=== PATIENT | female | born 1960 | race Caucasian/White ===

== ENCOUNTER 2016-10-15 14:44 | Emergency (ER) | payer BC ==
[~2016-10-15] VITALS: Ht 160 cm; Wt 84.1 kg
[~2016-10-15 14:44] MED LIST: LORA10TA51 PO; PSEU120T21; WARF10TA4 PO
[2016-10-15 14:48] VITALS: TEMP 36.5; Ht 160 cm; Wt 84.1 kg
[2016-10-15] MEDS ORDERED: MONT1TAB3 PO (16:22)
[2016-10-15] MEDS ORDERED: ADVIN10/60 INH (16:22)
[2016-10-15] MEDS ORDERED: ONDANSETRON INJ 2 MG/ML 2 ML VIAL IV STA (16:34)
[2016-10-15] MEDS ORDERED: SODIUM CHLORIDE 0.9% 1000ML 1,000 ML IV STA ×2 (16:34)
[2016-10-15] MEDS ORDERED: ACET-1256 PO (16:35)
[2016-10-15] MEDS ORDERED: MoRPHine SULFATE 10 MG/ML CARP/VIAL IV PRN (16:45)
[2016-10-15 17:03] LABS: BASO % 0.2 %; BASO ABS # 0.02 K/uL (0-0.2); COMPLETE YES; EOS % 0.4 %; HEMATOCRIT 44.2 % (37-47); IG% 0.2 %; LYMPH % 9.4 %; MEAN CELL VOLUME 83.6 fL (80-100); MEAN CORPUSCULAR HEMOGLOBIN 29.3 pg (25-34); MEAN CORPUSCULAR HGB CONC 35.1 g/dl (32-36); MEAN PLATELET VOLUME 10.2 fL (7.4-10.4); MONO % 3.4 %; NEUT % 86.4 %; PLATELET COUNT 277 K/uL (130-400); RED BLOOD COUNT 5.29 M/uL (4.2-5.4); WHITE BLOOD COUNT 10.62 K/uL (4.8-10.8)
--- NOTE | 2016-10-15 17:04 | EMERGENCY ROOM VISIT NOTE ---
History Report prepared by Jerilyn: Low Burk Under the Supervision of: Dr. Enmanuel Renteria M.D. First contact with patient: 16:32 Chief Complaint: ABDOMINAL PAIN Stated Complaint: ABDOMINAL BACK PAIN Nursing Triage Summary: pt reports RLQ pain that radiates into low back since noon denies urinary sx, +NV History of Present Illness The patient is a 56 year old female who presents to the Emergency Room with complaints of constant right lower back pain beginning four and a half hours prior to arrival. She currently rates her discomfort as a 10/10 in severity. The patient associates right lower back pain that radiates into her right lower abdomen, nausea, vomiting, and decreased urination with today's symptoms. She notes she will feel like she has to urinate, but not much urine will be voided. The patient notes she still has her gallbladder and appendix. She states she has never had a kidney stone, but they run in her family. The patient denies a fever and cough. She notes a history of a tubal ligation and a hysterectomy. 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 A total of 10 systems reviewed and were otherwise negative. Past Medical & Surgical Medical Problems: (1) Asthma (2) Endometriosis Surgical Problems: (1) S/P hysterectomy (2) S/P tubal ligation Family History Cancer FH: heart disease Social History Smoking Status: Never Smoker Marital Status: Housing Status: lives with significant other Occupation Status: employed Current/Historical Medications Scheduled Montelukast Sodium (Singulair), 10 MG PO HS Ondasetron Odt (Zofran Odt), 4 MG SL Q6H Sertraline (Zoloft), 100 MG PO DAILY Scheduled PRN Acetaminophen (Tylenol), 1,000 MG PO UD PRN for Pain or Fever Albuterol (Proair Hfa), 2 PUFFS INH QID PRN for SOB/Wheezing Fluticasone Prop/Salmeterol (Advair Diskus 100/50 60 Dose), 1 PUFF INH BID PRN for Wheezing Loratadine (Claritin), 10 MG PO DAILY PRN for Allergy Symptoms Oxycodone Ir (Roxicodone Ir), 1-2 TAB PO Q4H PRN for Pain Allergies Coded Allergies: Naproxen (Verified Adverse Reaction, Unknown, INTERNAL BLEEDING, 03/22/16) Physical Exam Vital Signs Date Time Temp Pulse Resp B/P Pulse Ox O2 Delivery O2 Flow Rate FiO2 10/15/16 18:54 59 18 162/94 91 10/15/16 17:35 50 18 162/76 93 Room Air 10/15/16 14:48 36.5 51 18 171/116 100 Room Air Physical Exam GENERAL: Patient is in mild distress secondary to pain. HEENT: No acute trauma, normocephalic atraumatic, mucous membranes moist, no nasal congestion, no scleral icterus. NECK: No stridor, no adenopathy, no meningismus, trachea is midline. LUNGS: Clear to auscultation bilaterally, no wheeze, no rhonchi, breath sounds equal. HEART: Without murmurs gallops or rubs, regular rate and rhythm. ABDOMEN: Tender mostly in the right lower quadrant. Soft, bowel sounds positive , no hernias, no peritonitis. BACK: Right flank discomfort with percussion. EXTREMITIES: No cyanosis or edema, full range of motion of all the joints without pain or difficulty, no signs for acute trauma. NEUROLOGIC: Oriented x 3, no acute motor or sensory deficits, no focal weakness. SKIN: No rash, no jaundice, no diaphoresis. Medical Decision & Procedures ER Provider Diagnostic Interpretation: CT results as stated below per my review and radiologist interpretation: ABDOMEN AND PELVIS CT WITHOUT CONTRAST CT DOSE: 1459.56 mGy.cm HISTORY: EVALUATE FLANK PAIN/HEMATURIA TECHNIQUE: Multiaxial CT images of the abdomen and pelvis were performed without the use of intravenous and oral contrast according to the standard department stone protocol. COMPARISON STUDY: None. FINDINGS: There is a 4 mm stone within the right ureterovesical junction best seen on image 165. This results in mild to moderate right hydroureteronephrosis. There is associated right perinephric fat stranding/fluid. No additional renal calculi. No left-sided hydronephrosis. The lung bases are essentially clear. Therefore scattered hypodense lesions seen within the liver. These are incompletely characterized on this noncontrast study but favor cysts. The largest in the left hepatic lobe measures 1.9 cm. The unenhanced spleen, adrenal glands, pancreas, and gallbladder are unremarkable. The bladder is unremarkable. The uterus is surgically absent. Suboptimal evaluation for bowel pathology due to the lack of intravenous and oral contrast. However, there is no definite bowel wall thickening or obstruction. A few sigmoid diverticula. Normal appendix. IMPRESSION: A 4 mm obstructing stone at the right ureterovesical junction resulting in mild to moderate right-sided hydroureteronephrosis. Electronically signed by: Ariel Walters M.D. 10/15/2016 5:32 PM Dictated Date/Time: 10/15/2016 5:26 PM Laboratory Results 10/15/16 16:35 Red Blood Count 5.29, Mean Corpuscular Volume 83.6, Mean Corpuscular Hemoglobin 29.3, Mean Corpuscular Hemoglobin Concent 35.1, Mean Platelet Volume 10.2, Neutrophils (%) (Auto) 86.4, Lymphocytes (%) (Auto) 9.4, Monocytes (%) (Auto) 3.4, Eosinophils (%) (Auto) 0.4, Basophils (%) (Auto) 0.2, Neutrophils # (Auto) 9.18, Lymphocytes # (Auto) 1.00, Monocytes # (Auto) 0.36, Eosinophils # (Auto) 0.04, Basophils # (Auto) 0.02 10/15/16 16:35 Test 10/15/16 16:35 10/15/16 16:50 White Blood Count 10.62 K/uL (4.8-10.8) Red Blood Count 5.29 M/uL (4.2-5.4) Hemoglobin 15.5 g/dL (12.0-16.0) Hematocrit 44.2 % (37-47) Mean Corpuscular Volume 83.6 fL (80-100) Mean Corpuscular Hemoglobin 29.3 pg (25-34) Mean Corpuscular Hemoglobin Concent 35.1 g/dl (32-36) Platelet Count 277 K/uL (130-400) Mean Platelet Volume 10.2 fL (7.4-10.4) Neutrophils (%) (Auto) 86.4 % Lymphocytes (%) (Auto) 9.4 % Monocytes (%) (Auto) 3.4 % Eosinophils (%) (Auto) 0.4 % Basophils (%) (Auto) 0.2 % Neutrophils # (Auto) 9.18 K/uL (1.4-6.5) Lymphocytes # (Auto) 1.00 K/uL (1.2-3.4) Monocytes # (Auto) 0.36 K/uL (0.11-0.59) Eosinophils # (Auto) 0.04 K/uL (0-0.5) Basophils # (Auto) 0.02 K/uL (0-0.2) RDW Standard Deviation 43.1 fL (36.4-46.3) RDW Coefficient of Variation 14.0 % (11.5-14.5) Immature Granulocyte % (Auto) 0.2 % Immature Granulocyte # (Auto) 0.02 K/uL (0.00-0.02) Anion Gap 14.0 mmol/L (3-11) Est Creatinine Clear Calc Drug Dose 75.9 ml/min Estimated GFR () 88.1 Estimated GFR (Non- 76.1 BUN/Creatinine Ratio 13.5 (10-20) Calcium Level 10.0 mg/dl (8.5-10.1) Total Bilirubin 0.6 mg/dl (0.2-1) Aspartate Amino Transf (AST/SGOT) 15 U/L (15-37) Alanine Aminotransferase (ALT/SGPT) 26 U/L (12-78) Alkaline Phosphatase 81 U/L (45-117) Total Protein 7.6 gm/dl (6.4-8.2) Albumin 4.3 gm/dl (3.4-5.0) Globulin 3.3 gm/dl (2.5-4.0) Albumin/Globulin Ratio 1.3 (0.9-2) Lipase 179 U/L (73-393) Urine Color DK YELLOW Urine Appearance CLEAR (CLEAR) Urine pH 7.5 (4.5-7.5) Urine Specific [place] 1.028 (1.000-1.030) Urine Protein NEG (NEG) Urine Glucose (UA) NEG (NEG) Urine Ketones 4+ (NEG) Urine Occult Blood 3+ (NEG) Urine Nitrite NEG (NEG) Urine Bilirubin NEG (NEG) Urine Urobilinogen NEG (NEG) Urine Leukocyte Esterase TRACE (NEG) Urine WBC (Auto) 1-5 /hpf (0-5) Urine RBC (Auto) >30 /hpf (0-4) Urine Hyaline Casts (Auto) 1-5 /lpf (0-5) Urine Epithelial Cells (Auto) >30 /lpf (0-5) Urine Bacteria (Auto) NEG (NEG) Laboratory results reviewed by me. Medications Administered Medications (Trade) Dose Ordered Sig/Sin Route Start Time Stop Time Status Last Admin Dose Admin Ondansetron HCl 4 mg 4 mg NOW STAT IV 10/15/16 16:34 10/15/16 16:37 DC 10/15/16 16:49 4 MG Sodium Chloride (Nss 1000ml) 1,000 ml @ 999 mls/hr Q1H1M STAT IV 10/15/16 16:34 10/15/16 17:34 DC 10/15/16 16:49 999 MLS/HR Morphine Sulfate (MoRPHine SULFATE INJ) 6 mg Q15M PRN IV 10/15/16 16:45 10/15/16 19:29 DC 10/15/16 16:49 6 MG Morphine Sulfate (MoRPHine SULFATE INJ) 2 mg STK-MED ONCE .ROUTE 10/15/16 18:25 10/15/16 18:27 DC 10/15/16 18:29 2 MG Morphine Sulfate (MoRPHine SULFATE INJ) 4 mg STK-MED ONCE .ROUTE 10/15/16 18:25 10/15/16 18:27 DC 10/15/16 18:28 4 MG ED Course 1632: The patient was evaluated in room A3. A complete history and physical exam was performed. 1634: Ordered Sodium Chloride 1,000 ml @ 200 mls/hr IV, Sodium Chloride 1,000 ml @ 999 mls/hr IV, Zofran Inj 4 mg IV. 1645: Ordered Morphine Sulfate 6 mg IV. 1807: Reevaluated the patient, and she is doing well. Discussed results and discharge instructions: She verbalized understanding and agreement. The patient is ready for discharge. Medical Decision The differential diagnoses include but are not limited to: renal colic, renal failure, UTI, pyelonephritis, electrolyte imbalance, renal hematoma. There is no leukocytosis or concerning anemia. No significant electrolyte abnormality, kidney failure or hepatitis. There is no pancreatitis. Urinalysis shows some dehydration and hematuria, no infection. Abdominal and pelvis CT shows a 4 mm right ureteral stone with hydronephrosis. The patient received IV saline, IV morphine and IV Zofran, she does feel improved. I talked to her about her findings. She would like to be discharged home. She will strain all her urine. She will follow with her doctors office, she can return here if worsening. [place] Drug Monitoring Program Search Results: patient reviewed within database, no issues identified Impression Primary Impression: Renal colic Additional Impression: Hematuria Scribe Attestation The scribe's documentation has been prepared under my direction and personally reviewed by me in its entirety. I confirm that the note above accurately reflects all work, treatment, procedures, and medical decision making performed by me. Departure Information Dispostion Home / Self-Care Prescriptions Ondasetron Odt (ZOFRAN ODT) 4 Mg Tab 4 MG SL Q6H for Nausea, #12 TAB Prov: Enmanuel Renteria M.D. 10/15/16 Oxycodone Ir (Roxicodone Ir) 5 Mg Tab 1-2 TAB PO Q4H Y for Pain, #15 TAB Prov: Enmanuel Renteria M.D. 10/15/16 Referrals RV. Thomas MD (PCP) Forms Call Back Authorization, HOME CARE DOCUMENTATION FORM, IMPORTANT VISIT INFORMATION, My [facility], Work Instructions Patient Instructions A Signature Page Additional Instructions fluids rest strain all the urine oxy ir 1-2 tab every 4 hours for pain zofran 1-2 tab every 6 hours for nausea follow with gerardo garcia this week return for fever, vomiting or uncontrolled pain Problem Qualifiers
[2016-10-15 17:09] LABS: BUN/CREATININE RATIO 13.5 (10-20); CREATININE 0.86 mg/dl (0.60-1.20); POTASSIUM 3.4 mmol/L (3.5-5.1)
[2016-10-15 17:12] LABS: ALB/GLOB RATIO 1.3 (0.9-2)
[2016-10-15 17:13] LABS: URINE APPEARANCE CLEAR (CLEAR); URINE BILIRUBIN NEG (NEG); URINE COLOR DK YELLOW; URINE EPITHELIAL CELL AUTO >30 /lpf (0-5); URINE NITRITE NEG (NEG); URINE PH 7.5 (4.5-7.5); URINE SPECIFIC GRAVITY 1.028 (1.000-1.030); UROBILINOGEN NEG (NEG); ZZUR CULT IF INDIC CLEAN CATCH NO
[2016-10-15 17:30] LABS: MANUAL MICROSCOPIC REQUIRED? NO; REVIEW REQ? NO; SULFASALICYLIC ACID NEG (NEG)
--- NOTE | 2016-10-15 17:34 | DIAGNOSTIC IMAGING REPORT ---
ABDOMEN AND PELVIS CT WITHOUT CONTRAST CT DOSE: 1459.56 mGy.cm HISTORY: EVALUATE FLANK PAIN/HEMATURIA TECHNIQUE: Multiaxial CT images of the abdomen and pelvis were performed without the use of intravenous and oral contrast according to the standard department stone protocol. COMPARISON STUDY: None. FINDINGS: There is a 4 mm stone within the right ureterovesical junction best seen on image 165. This results in mild to moderate right hydroureteronephrosis. There is associated right perinephric fat stranding/fluid. No additional renal calculi. No left-sided hydronephrosis. The lung bases are essentially clear. Therefore scattered hypodense lesions seen within the liver. These are incompletely characterized on this noncontrast study but favor cysts. The largest in the left hepatic lobe measures 1.9 cm. The unenhanced spleen, adrenal glands, pancreas, and gallbladder are unremarkable. The bladder is unremarkable. The uterus is surgically absent. Suboptimal evaluation for bowel pathology due to the lack of intravenous and oral contrast. However, there is no definite bowel wall thickening or obstruction. A few sigmoid diverticula. Normal appendix. IMPRESSION: A 4 mm obstructing stone at the right ureterovesical junction resulting in mild to moderate right-sided hydroureteronephrosis. Electronically signed by: Ariel Walters M.D. 10/15/2016 5:32 PM Dictated Date/Time: 10/15/2016 5:26 PM
[2016-10-15] MEDS ORDERED: ONDA4TAB10 SL (18:20)
[2016-10-15] MEDS ORDERED: OXYC1TAB3 PO (18:20)
[2016-10-15] MEDS ORDERED: MoRPHine SULFATE 2 MG/ML CARP ONE (18:25)
[2016-10-15] MEDS ORDERED: MoRPHine SULFATE 4 MG/ML 1 ML CARP\\VIAL ONE (18:25)
[2016-10-15] MEDS ORDERED: ALBU1AER9 INH (18:40)
[2016-10-15] MEDS ORDERED: SERT-234 PO (18:40)
[2016-10-15 18:54] VITALS: BP 162/94; PULSE 59; O2SAT 91
== END 2016-10-15 18:54 | disposition home or self-care (01) ==
LOC: C.EDB 14:45 → C.EDA 18:54
DX: N23 Unspecified renal colic (principal); R31.9 Hematuria, unspecified; N13.30 Unspecified hydronephrosis

== ENCOUNTER → 2016-11-03 | Outpatient (CLI) | payer BC ==
[~2016-11-03] MED LIST changes: +ACET-1256 PO; +ADVIN10/60 INH; +ALBU1AER9 INH; +MONT1TAB3 PO; +ONDA4TAB10 SL; +OXYC1TAB3 PO; -PSEU120T21; +SERT-234 PO; -WARF10TA4 PO
== END | disposition home or self-care (01) ==
LOC: C.LABSPEC 10:56
PROVIDERS: ATTEND Nurse Practitioner Adult Health
DX: N20.1 Calculus of ureter (principal)

== ENCOUNTER → 2016-12-10 | Outpatient (CLI) | payer BC ==
--- NOTE | 2016-12-10 14:28 | DIAGNOSTIC IMAGING REPORT ---
KUB CLINICAL HISTORY: URETERAL CALCULUS, RIGHT COMPARISON STUDY: CT scan dated 10/15/2016 FINDINGS: There is no pathologic bowel dilatation. No renal calculi are visualized. There are several nonspecific pelvic basin calcifications. IMPRESSION: 1. No evidence of pathologic bowel dilatation 2. No renal calculi identified 3. Nonspecific pelvic basin calcifications Electronically signed by: Paul Soto M.D. 12/10/2016 2:26 PM Dictated Date/Time: 12/10/2016 2:25 PM
== END | disposition home or self-care (01) ==
LOC: C.RAD1850 14:01
PROVIDERS: ATTEND Nurse Practitioner Adult Health
DX: N20.1 Calculus of ureter (principal)

== ENCOUNTER → 2016-12-17 | Outpatient (CLI) | payer BC ==
[~2016-12-17] MED LIST changes: +OPTIRAY 300 IV PRN
--- NOTE | 2016-12-17 14:34 | DIAGNOSTIC IMAGING REPORT ---
IV PYELOGRAM CLINICAL HISTORY: Nephrolithiasis. COMPARISON STUDY: Abdominal CT dated 10/15/2016. TECHNIQUE: An abdominal sports medicine specialist radiograph is performed. IVP pyelogram was then performed following the IV administration of 100 cc of Optiray 300, tomographic images are acquired in the corticomedullary and excretory phases of enhancement. Overhead views of the renal collecting system and bladder were obtained in multiple obliquities both pre and post void. FINDINGS: The abdominal sports medicine specialist radiograph shows a nonobstructed abdominal bowel gas pattern. There is no radiographic evidence of nephrolithiasis. Pelvic phleboliths are similar to previous. The bony structures appear intact. Following contrast administration there is symmetric renal cortical enhancement and contrast excretion. No hydronephrosis is seen. There is no evidence of hypervascular renal mass lesion. No filling defects are identified within the renal pelvis bilaterally or along the course of the ureters to suggest urothelial lesion. The bladder is normal as visualized. No significant post void residual is seen. IMPRESSION: Normal IV pyelogram. Electronically signed by: Enmanuel Osman M.D. 12/17/2016 2:31 PM Dictated Date/Time: 12/17/2016 2:28 PM
== END | disposition home or self-care (01) ==
LOC: C.RAD 12:30
PROVIDERS: ATTEND Nurse Practitioner Adult Health
DX: N20.0 Calculus of kidney (principal)

== ENCOUNTER → 2016-12-22 | Outpatient (CLI) | payer BC ==
[~2016-12-22] MED LIST changes: -OPTIRAY 300 IV PRN
== END | disposition home or self-care (01) ==
LOC: C.LAB1850 12:15
PROVIDERS: ATTEND Nurse Practitioner Adult Health
DX: N20.0 Calculus of kidney (principal)

== ENCOUNTER → 2017-01-19 | Outpatient (CLI) | payer BC ==
--- NOTE | 2017-01-19 10:40 | DIAGNOSTIC IMAGING REPORT ---
RIGHT LOWER EXTREMITY VENOUS DOPPLER HISTORY: Right leg swelling. COMPARISON STUDY: Right leg venous Doppler 03/22/2016. FINDINGS: There is normal compressibility, flow, and augmentation within the right lower extremity deep venous system. Small of echogenic stranding within the greater saphenous vein consistent with nonocclusive chronic thrombus. This is significant improved IMPRESSION: No DVT within the right lower extremity. Small amount of nonocclusive chronic thrombus within the greater saphenous vein which has significantly improved. Electronically signed by: Ariel Walters M.D. 01/19/2017 10:37 AM Dictated Date/Time: 01/19/2017 10:36 AM
== END | disposition home or self-care (01) ==
LOC: C.ULTRBC 10:00
PROVIDERS: ATTEND Internal Medicine Hematology & Oncology
DX: I82.401 Acute embolism and thrombosis of unspecified deep veins of right lower extremity (principal)

== ENCOUNTER → 2017-02-06 | Outpatient (CLI) | payer BC ==
--- NOTE | 2017-02-06 09:45 | DIAGNOSTIC IMAGING REPORT ---
ABDOMINAL ULTRASOUND, RIGHT UPPER QUADRANT HISTORY: Liver cyst. Review CT of October 2016. COMPARISON: CT of the abdomen and pelvis October 15, 2016. FINDINGS: Liver morphology is normal. A few hepatic cysts are noted, the largest of which is a 1.9 cm septated left hepatic lobe cyst which corresponds to the lesion shown on CT of October 15, 2016. No suspicious hepatic lesions are identified by sonography. There are no gallstones. There is no biliary ductal dilatation. The pancreatic body is normal. The head and tail are slightly obscured. There is no right hydronephrosis. IMPRESSION: 1. Several hepatic cysts. 2. No gallstones or biliary ductal dilatation. Electronically signed by: Marcio Mccarthy M.D. 02/06/2017 9:44 AM Dictated Date/Time: 02/06/2017 9:41 AM
== END | disposition home or self-care (01) ==
LOC: C.ULTR 09:00
PROVIDERS: ATTEND Internal Medicine
DX: K76.89 Other specified diseases of liver (principal)

== ENCOUNTER → 2017-09-30 | Outpatient (CLI) | payer BC ==
[~2017-09-30] MED LIST changes: -ONDA4TAB10 SL; -OXYC1TAB3 PO
--- NOTE | 2017-10-01 13:48 | MAMMOGRAPHY REPORT ---
BILATERAL DIGITAL SCREENING MAMMOGRAM TOMOSYNTHESIS WITH CAD: 09/30/2017 CLINICAL HISTORY: Routine screening examination. TECHNIQUE: Breast tomosynthesis in addition to standard 2D mammography was performed. Current study was also evaluated with a Computer Aided Detection (CAD) system. COMPARISON: Comparison is made to exams dated: 09/25/2016 mammogram, 09/24/2015 mammogram, 4 mammogram, 08/02/2009 mammogram, 08/08/2011 mammogram, and 08/27/2012 mammogram - [facility]. BREAST COMPOSITION: There are scattered areas of fibroglandular density in both breasts. FINDINGS: There are stable asymmetries in the lateral right breast. No new suspicious mass, architec tural distortion or cluster of microcalcifications is seen. IMPRESSION: ACR BI-RADS CATEGORY 1: NEGATIVE There is no mammographic evidence of malignancy. A 1 year screening mammogram is recommended. The pa tient will receive written notification of the results. Approximately 10% of breast cancers are not detected with mammography. A negative mammographic report should not delay biopsy if a clinically suggestive mass is present. Avani Spencer M.D. ay/:09/30/2017 17:02:31 Boiler House Inspector: Ruthie WOODS(Bhavya)(Karin), [facility] letter sent: Normal 1/2 BI-RADS Code: ACR BI-RADS Category 1: Negative
== END | disposition home or self-care (01) ==
LOC: C.MAMM 09:36
PROVIDERS: ATTEND Internal Medicine
DX: Z12.31 Encounter for screening mammogram for malignant neoplasm of breast (principal); N20.1 Calculus of ureter

== ENCOUNTER → 2018-05-12 | Outpatient (CLI) | payer OTHER ==
--- NOTE | 2018-05-12 10:14 | DIAGNOSTIC IMAGING REPORT ---
MRI OF THE RIGHT WRIST WITHOUT CONTRAST CLINICAL HISTORY: Right wrist pain and swelling status post fall on April 12, 2018. COMPARISON STUDY: No previous studies for comparison. TECHNIQUE: Utilizing a 1.5 Janessa magnet and dedicated coil, multiplanar, multiecho imaging of the right wrist was performed without intravenous or intra-articular contrast. FINDINGS: Alignment of the right wrist is anatomic. There is no evidence for fracture. A 4 mm T1 hyperintense lesion within the lunate has benign imaging characteristics. There are no suspicious osseous lesions. No tear of the triangular fibrocartilage complex is noted. There is slight thickening and intermediate signal within the extensor carpi ulnaris. This is likely chronic. Note is made of thickening with abnormal signal and adjacent soft tissue edema within the abductor pollicis longus consistent with a partial thickness tear. Scapholunate ligament appears intact. No mass or fluid collection is identified on this exam. IMPRESSION: 1. Abnormal signal and thickening with adjacent soft tissue edema of the abductor pollicis longus consistent with a partial thickness tear. 2. No acute fracture within the right wrist. Intact scaphoid. 3. Mild thickening and abnormal signal within the extensor carpi ulnaris which may be chronic. Electronically signed by: Marcio Mccarthy M.D. 05/12/2018 10:13 AM Dictated Date/Time: 05/12/2018 9:34 AM
== END | disposition home or self-care (01) ==
LOC: C.MRIBC 08:45
PROVIDERS: ATTEND Physician Assistant
DX: M25.539 Pain in unspecified wrist (principal)